=== PATIENT | female | born 1960 | race African-American/Black ===

== ENCOUNTER 2019-02-03 09:57 | Outpatient (CLI) | payer MEDICAID ==
--- NOTE | 2019-02-03 10:36 | XRAY Report ---
Reason: CHRONIC LOW BACK PAIN Procedure Date: 02/03/2019 Accession Number: [id number] / [id number] Procedure: XRN - Lumbar Spine 2 View CPT Code: FULL RESULT: EXAM: LUMBOSACRAL SPINE RADIOGRAPHY EXAM DATE: 02/03/2019 10:13 AM. CLINICAL HISTORY: CHRONIC LOW BACK PAIN. COMPARISONS: None. TECHNIQUE: 3 views. FINDINGS: Alignment: There is normal lumbar lordosis. Bones: Five ttd-akl-gvggtko lumbar vertebral bodies are present. No fractures or bone lesions. Disks: Mild disk height narrowing at L4-L5 with grade 1 L5 retrolisthesis. Moderate disk height narrowing at L5-S1 without evidence of subluxation. Facets: Bilateral L4-L5 and L5-S1 facet arthropathy. Sacroiliac Joints: Unremarkable. Soft Tissues: Large amount of generalized retained stool. IMPRESSION: 1. No acute bony abnormality. 2. Mild disk height narrowing at L4-L5 with grade 1 L5 retrolisthesis. 3. Moderate disk height narrowing at L5-S1 without subluxation. 4. Bilateral multilevel facet arthropathy as described above. 5. Large amount of generalized retained stool. Clinical correlation is recommended. RADIA
== END 2019-02-03 09:58 | disposition home or self-care (01) ==
LOC: DI.N 09:57
PROVIDERS: ATTEND Anesthesiology Pain Medicine
DX: M48.061 Spinal stenosis, lumbar region without neurogenic claudication (principal)
CPT/HCPCS: 72100

== ENCOUNTER 2019-02-15 16:56 | Emergency (ER) | payer MEDICAID, MEDICARE ==
--- NOTE | 2019-02-15 17:27 | ED Physician Documentation ---
PD HPI FOCAL NEURO - Stated complaint Stated Complaint: LT SIDE FACE WEAK - Chief complaint Chief Complaint: Neuro - History obtained from History obtained from: Patient - History of Present Illness Timing - onset: Yesterday (58-year-old woman with history of fibromyalgia, chronic shoulder pain, and myasthenia gravis treated with Mestinon and low-dose prednisone. Since yesterday she feels like her left cheek is drooping. She notices it most where her cheeks on the inside touch her teeth. She denies any numbness. No weakness or numbness in the arms or legs but she does note a week's worth of bilateral hip pain.) Review of Systems Constitutional: denies: Fever, Chills Throat: denies: Dental pain / toothache, Sore throat Cardiac: denies: Chest pain / pressure, Palpitations Respiratory: denies: Dyspnea, Cough PD PAST MEDICAL HISTORY - Present Medications Home Medications: Ambulatory Orders Medication Instructions Recorded Confirmed Hydrocodone/Acetaminophen 1 - 2 each PO Q6H PRN #10 tablet 02/15/19 [Hydrocodon-Acetaminophen 5-325] - Allergies Allergies/Adverse Reactions: Allergies Allergy/AdvReac Type Severity Reaction Status Date / Time iodine Allergy Unknown Verified 02/15/19 17:15 peanut Allergy Unknown Verified 02/15/19 17:15 salmon oil Allergy Unknown Verified 02/15/19 17:15 shellfish derived Allergy Unknown Verified 02/15/19 17:15 Sulfa (Sulfonamide Allergy Unknown Verified 02/15/19 17:15 Antibiotics) tree nut Allergy Unknown Verified 02/15/19 17:15 PD ED PE NORMAL - Vitals Vital signs reviewed: Yes - General General: Alert and oriented X 3, No acute distress, Well developed/nourished - HEENT HEENT: PERRL, EOMI - Neck Neck: Supple, no meningeal sign, No bony TTP - Cardiac Cardiac: RRR, No murmur - Respiratory Respiratory: No respiratory distress, Clear bilaterally - Abdomen Abdomen: Non tender - Extremities Extremities: Other (Her hips are nontender with full range of motion, she can walk normally and bears weight on either leg individually.) - Neuro Neuro: Alert and oriented X 3, No motor deficit, No sensory deficit, Normal speech NIHSS - Time Time: 17:18 - Level of Consciousness Level of consciousness: (0) Alert, Keenly responsive LOC Questions: (0) Answers both Q's correct LOC Commands: (0) Performs both correctly - Gaze Best Gaze: (0) Normal - Visual Visual: (0) No loss - Facial Palsy Facial Palsy: (0) Normal, symmetrical movement - Motor Arms (both separate) Motor Arm (right): (0) No drift Motor Arm (left): (0) No drift - Motor Legs (both separate) Motor Leg (right): (0) No drift Motor Leg (left): (0) No drift - Limb Ataxia Limb Ataxia: (0) Absent - Sensory Sensory: (0) Normal - Best Language Best Language: (0) No aphasia - Dysarthria Dysarthria: (0) Normal - Extinction and Inattention (formally neg Extinction and inattention: (0) No abnormality - Total Score/Results Total Score/Result: 0 Results - Vitals Vitals: Vital Signs - 24 hr 02/15/19 02/15/19 02/15/19 17:06 17:30 17:53 Temperature 37 C Heart Rate 92 75 74 Respiratory 16 16 16 Rate Blood Pressure 163/102 H 150/94 H 115/67 O2 Saturation 100 98 99 02/15/19 18:04 Temperature Heart Rate 69 Respiratory 16 Rate Blood Pressure 134/78 H O2 Saturation 99 Oxygen O2 Source Room air - Labs Labs: Laboratory Tests 02/15/19 02/15/19 02/15/19 17:50 17:50 17:50 WBC 5.2 RBC 4.69 Hgb 12.5 Hct 39.4 MCV 84.0 MCH 26.7 L MCHC 31.7 L RDW 14.6 Plt Count 243 MPV 9.6 Neut # (Auto) 4.0 Lymph # (Auto) 0.8 L [place] # (Auto) 0.3 Eos # (Auto) 0.1 Baso # (Auto) 0.0 Absolute Nucleated RBC 0.00 Nucleated RBC % 0.0 PT 12.4 INR 1.1 Sodium 144 Potassium 4.1 Chloride 107 Carbon Dioxide 30 Anion Gap 7.0 BUN 11 Creatinine 0.8 Estimated GFR (MDRD) 90 Glucose 102 H Calcium 9.1 Total Bilirubin 0.5 AST 19 ALT 20 Alkaline Phosphatase 50 Total Protein 7.1 Albumin 3.7 Globulin 3.4 Albumin/Globulin Ratio 1.1 Lipase 28 - Rads (name of study) CT Head Radiology: EMP read contemporaneously (normal) PD MEDICAL DECISION MAKING - ED course ED course: 58-year-old woman with fibromyalgia and myasthenia gravis presents with complaints of a potential left facial droop which is not seen by me or the nurse on exam. Work-up here was negative. On reexamination at 6:45 PM I still do not see a facial droop at all. Watchful waiting was advised. She did need something for her hip pain. Of note the exam is normal there. Departure - Departure Disposition: 01 Home, Self Care Clinical Impression: Facial asymmetry Hip pain Qualifiers: Laterality: bilateral Qualified Code(s): M25.551 - Pain in right hip; M25.552 - Pain in left hip Condition: Good Record reviewed to determine appropriate education?: Yes Prescriptions: Hydrocodone/Acetaminophen [Hydrocodon-Acetaminophen 5-325] 1 - 2 each PO Q6H PRN #10 tablet PRN Reason: pain Comments: If you worsen in any way please return tomorrow for reevaluation, follow-up with your neurologist, next available appointment.
[2019-02-15] MEDS ORDERED: INDOMETHACIN 25 MG CAPSULE PO STA (17:38)
[2019-02-15 17:59] LABS: BASOPHILS % (AUTO) 0.4 %; EOSINOPHILS # (AUTO) 0.1 10^3/uL (0.0-0.7); EOSINOPHILS % (AUTO) 1.5 %; HGB - HEMOGLOBIN 12.5 g/dL (12.0-16.0); LYMPHOCYTES # (AUTO) 0.8 10^3/uL (1.5-3.5); LYMPHOCYTES % (AUTO) 15.3 %; MEAN CORPUSCULAR HEMOGLOBIN 26.7 pg (27.0-31.0); MEAN CORPUSCULAR HGB CONC 31.7 g/dL (32.0-36.0); MEAN PLATELET VOLUME 9.6 fL (7.9-10.8); MONOCYTES # (AUTO) 0.3 10^3/uL (0.0-1.0); NEUTROPHILS % (AUTO) 77.4 %; PLT - PLATELET COUNT 243 10^3/uL (130-450); RED BLOOD COUNT 4.69 10^6/uL (4.20-5.40); RED CELL DISTRIBUTION WIDTH 14.6 % (12.0-15.0); WHITE BLOOD COUNT 5.2 x10^3/uL (4.8-10.8)
[2019-02-15 18:04] LABS: INR 1.1 (0.8-1.2); PT - PROTHROMBIN TIME 12.4 secs (9.9-12.6)
[2019-02-15 18:11] LABS: ALBUMIN 3.7 g/dL (3.2-5.5); ALBUMIN/GLOBULIN RATIO 1.1 (1.0-2.2); BILIRUBIN,TOTAL 0.5 mg/dL (0.2-1.0); CALCIUM 9.1 mg/dL (8.5-10.3); CREATININE 0.8 mg/dL (0.4-1.0); TOTAL PROTEIN 7.1 g/dL (6.7-8.2)
--- NOTE | 2019-02-15 18:31 | CT Report ---
Reason: L facial weakness Procedure Date: 02/15/2019 Accession Number: [id number] / [id number] Procedure: CT - HEAD WO CPT Code: FULL RESULT: EXAM: CT HEAD EXAM DATE: 02/15/2019 05:43 PM. CLINICAL HISTORY: Left facial weakness. COMPARISON: None. TECHNIQUE: Multiaxial CT images were obtained from the foramen magnum to the vertex. Reformats: Sagittal and coronal. IV contrast: None. In accordance with CT protocol optimization, one or more of the following dose reduction techniques were utilized for this exam: automated exposure control, adjustment of mA and/or KV based on patient size, or use of iterative reconstructive technique. FINDINGS: PARENCHYMA: No acute hemorrhage, transcortical infarction or mass. Normal bearden-white differentiation. EXTRA-AXIAL SPACES: No extra-axial fluid collections. No midline shift. VENTRICLES/SULCI: Normal for patient age. VASCULAR STRUCTURES: The visible vascular structures are unremarkable. SINUSES: The visible paranasal sinuses and mastoid air cells are unremarkable. ORBITS: Unremarkable. BONES: No displaced acute calvarial fracture. OTHER: None. IMPRESSION: No acute intracranial findings. RADIA
[2019-02-15] MEDS ORDERED: HYDROcod/ACET 5/325 Prepack 4 PO STA (18:45)
[2019-02-15 18:50] VITALS: BP 150/94
[2019-02-15] MEDS ORDERED: HYDROcod/ACETAM 5/325 MG TABLET PO STA (18:53)
== END 2019-02-15 18:57 | disposition home or self-care (01) ==
LOC: ED 16:56
DX: Q67.0 Congenital facial asymmetry (principal); M25.551 Pain in right hip; M25.552 Pain in left hip; G70.00 Myasthenia gravis without (acute) exacerbation; Z79.52 Long term (current) use of systemic steroids; M79.7 Fibromyalgia
CPT/HCPCS: 36415; 70450; 80053; 83690; 85025; 85610; 99283; 99284; A9270

== ENCOUNTER 2019-04-06 15:43 | Outpatient (CLI) | payer MEDICARE ==
--- NOTE | 2019-04-07 11:14 | Ultrasound Report ---
Reason: POSTMENOPAUSAL BLEEDING Procedure Date: 04/06/2019 Accession Number: [id number] / [id number] Procedure: US - Pelvic w/Transvaginal CPT Code: Final Report FULL RESULT: EXAM: PELVIC ULTRASOUND EXAM DATE: 04/06/2019 05:50 PM. CLINICAL HISTORY: POSTMENOPAUSAL BLEEDING. COMPARISON: None. TECHNIQUE: Realtime transabdominal pelvic scan performed to identify the uterus and adnexa and as an overview of other pelvic structures, followed by transvaginal scan to provide greater detail of the uterus and adnexa, with static image documentation. FINDINGS: Uterus: 7.7 x 3.4 x 4.6 cm, volume 63 cc. Neutral position. Normal overall size and echotexture. Masses: None. Endometrium: 4 mm. Normal. Cervix: Unremarkable. Right Ovary: 2 x 1.1 x 2.3 cm, volume 2.7 cc. Normal echotexture Left Ovary: 2.4 x 0.8 x 2.5 cm, volume 2.4 cc. Normal echotexture Free Fluid: None. Other: None. IMPRESSION: Normal endometrial thickness RADIA
== END 2019-04-06 15:44 | disposition home or self-care (01) ==
LOC: DI 15:43
PROVIDERS: ATTEND Obstetrics & Gynecology
DX: N95.0 Postmenopausal bleeding (principal)
CPT/HCPCS: 76830; 76856

== ENCOUNTER 2019-04-27 10:16 | Outpatient (CLI) | payer MEDICARE | END 2019-04-27 10:17 | disposition EMS.NT | LOC: EMS 10:16 | PROVIDERS: ATTEND Surgery | DX: F41.0 Panic disorder [episodic paroxysmal anxiety] (principal); R06.00 Dyspnea, unspecified ==

== ENCOUNTER 2020-12-16 17:21 | Emergency (ER) | payer MEDICARE ==
[2020-12-16] MEDS ORDERED: ACETAMINOPHEN 325 MG TABLET PO STA (17:25)
--- NOTE | 2020-12-16 17:26 | ED Physician Documentation ---
History of Present Illness - Stated complaint Stated Complaint: MANRIQUE,BODY ACHES - History obtained from History obtained from: Patient - Additonal information Additional information: 60-year-old woman with myasthenia gravis became symptomatic yesterday with headache, body aches, fever. She has been exposed to Covid by a family member. She has not been immunized against Covid. Review of Systems Constitutional: reports: Chills, Myalgias, Fatigue Nose: denies: Rhinorrhea / runny nose Throat: denies: Sore throat Respiratory: denies: Dyspnea PD PAST MEDICAL HISTORY - Present Medications Home Medications: Ambulatory Orders Medication Instructions Recorded Confirmed Hydrocodone/Acetaminophen 1 - 2 each PO Q6H PRN #10 tablet 02/15/19 [Hydrocodon-Acetaminophen 5-325] - Allergies Allergies/Adverse Reactions: Allergies Allergy/AdvReac Type Severity Reaction Status Date / Time iodine Allergy Unknown Verified 02/15/19 17:15 peanut Allergy Unknown Verified 02/15/19 17:15 salmon oil Allergy Unknown Verified 02/15/19 17:15 shellfish derived Allergy Unknown Verified 02/15/19 17:15 Sulfa (Sulfonamide Allergy Unknown Verified 02/15/19 17:15 Antibiotics) tree nut Allergy Unknown Verified 02/15/19 17:15 PD ED PE NORMAL - Vitals Vital signs reviewed: Yes - General General: Alert and oriented X 3, No acute distress - Derm Derm: Normal color, Warm and dry - Neuro Neuro: Alert and oriented X 3, Normal speech Results - Vitals Vitals: Oxygen O2 Source Room air PD MEDICAL DECISION MAKING - ED course ED course: Presents with family member simply asking for Covid test and this is done. Departure - Departure Disposition: 01 Home, Self Care Clinical Impression: Viral syndrome Condition: Good Record reviewed to determine appropriate education?: Yes Instructions: ED Viral Syndrome Comments: You have a Covid test pending. You need to self quarantine until the result is done and negative. Do not leave your house. Do not get near anybody. The results should be done in 48 to 72 hours. We will call with a positive result, the fastest way to get a negative result for confirmation though is to go to the hospital website at [email or web address], click on the my [facility] tab and sign up for the patient portal. If any friends or family get sick and would like to have a Covid test done, but do not have signs or symptoms that would necessitate being hospitalized, we encourage testing through our coronavirus swabbing station, call [phone] to schedule an appointment.
[2020-12-16 18:02] VITALS: BP 119/78
== END 2020-12-16 18:04 | disposition home or self-care (01) ==
LOC: ED 17:21
DX: B34.9 Viral infection, unspecified (principal); Z20.822 Contact with and (suspected) exposure to COVID-19
CPT/HCPCS: 99282; 99283; A9270; U0004

== ENCOUNTER 2024-01-17 21:15 | Outpatient (CLI) | payer MEDICARE | END 2024-01-17 21:16 | disposition critical access hospital (66) | LOC: EMS 21:15 | DX: R10.32 Left lower quadrant pain (principal); M54.50 Low back pain, unspecified | CPT/HCPCS: A0425; A0427 ==

== ENCOUNTER 2024-01-17 21:32 | Emergency (ER) | payer MEDICARE ==
--- NOTE | 2024-01-17 21:56 | ED Physician Documentation ---
History of Present Illness - Stated complaint Stated Complaint: ABD PAIN - Chief complaint Chief Complaint: Abd Pain - History obtained from History obtained from: Patient - Additonal information Additional information: 63-year-old woman with past medical history of fibromyalgia, myasthenia gravis, high blood pressure, presents with about a month of intermittent constipation and diarrhea and nausea as well as left lower quadrant radiating to the flank for the past 2 days, worsening acutely tonight. She states that she had nonbloody nonbilious nausea and vomiting and some nonbloody diarrhea yesterday. She had a soft brown bowel movement this morning. Denies fever, dizziness. She did receive 4 mg of IV morphine with EMS en route with improvement in pain. She does state that the pain is coming back. PD PAST MEDICAL HISTORY - Past Medical History Cardiovascular: Hypertension Musculoskeletal: Fibromyalgia Other Past Medical History: Myasthenia gravis - Allergies Allergies/Adverse Reactions: Allergies Allergy/AdvReac Type Severity Reaction Status Date / Time amoxicillin Allergy Rash Verified 01/17/24 21:39 iodine Allergy Unknown Verified 02/15/19 17:15 peanut Allergy Unknown Verified 02/15/19 17:15 salmon oil Allergy Unknown Verified 02/15/19 17:15 shellfish derived Allergy Unknown Verified 02/15/19 17:15 Sulfa (Sulfonamide Allergy Unknown Verified 02/15/19 17:15 Antibiotics) tree nut Allergy Unknown Verified 02/15/19 17:15 - Social History Does the pt smoke?: Yes Smoking Status: Current every day smoker Does the pt drink ETOH?: Yes - Immunizations Immunizations are current?: Yes PD ED PE NORMAL - Vitals Vital signs reviewed: Yes - General General: Alert and oriented X 3, No acute distress, Well developed/nourished - HEENT HEENT: Atraumatic, PERRL, EOMI - Neck Neck: Supple, no meningeal sign - Cardiac Cardiac: RRR - Respiratory Respiratory: No respiratory distress, Clear bilaterally - Abdomen Abdomen: Non tender, Non distended, Other (Discomfort to palpation in the left lower quadrant) - Derm Derm: Normal color, Warm and dry Results - Vitals Vitals: Vital Signs - 24 hr 01/17/24 21:39 Temperature 37.2 C Heart Rate 87 Respiratory 16 Rate Blood Pressure 127/96 H O2 Saturation 97 Oxygen O2 Source Room air - EKG (time done) 2143 EKG releavant findings:: EKG personally interpreted by author of this note. Relevant findings are: Rate: Rate (enter#) (61) Rhythm: NSR Mentor: Normal Intervals: Normal PA QRS: Normal Ischemia: Normal ST segments Other comments: Other comments (PVC) - Labs Labs: Laboratory Tests 01/17/24 01/17/24 21:38 21:38 WBC 8.3 RBC 4.59 Hgb 12.1 Hct 38.0 MCV 82.8 MCH 26.4 L MCHC 31.8 L RDW 16.2 H Plt Count 260 MPV 9.8 Neut # (Auto) 6.5 Lymph # (Auto) 1.1 L [place] # (Auto) 0.5 Eos # (Auto) 0.2 Baso # (Auto) 0.0 Absolute Nucleated RBC 0.00 Nucleated RBC % 0.0 Sodium 142 Potassium 3.6 Chloride 106 Carbon Dioxide 31 Anion Gap 5.0 L BUN 12 Creatinine 1.0 Estimated GFR (MDRD) 68 L Glucose 150 H Calcium 9.0 Total Bilirubin 0.3 AST 14 ALT 13 Alkaline Phosphatase 35 L Total Protein 6.1 L Albumin 3.8 Globulin 2.3 Albumin/Globulin Ratio 1.7 Lipase 29 PD Medical Decision Making - ED course ED course: 63-year-old woman presents with abdominal pain worsening over the past 2 days as well as some chronic sounding symptoms of gastrointestinal nature over the past couple months. She does state that she is being worked up for IBS. Plan to obtain lab work, CT abdomen pelvis with IV contrast and provide IV fluids and pain medication. note that patient declined iv contrast since she had a prior bad experience in 2006 and "screamed and writhed on the table" when she got contrast. therefore ct noncontrast was ordered per her request. Patient responded well to pain medication with improvement in pain. Plan to discharge and follow-up outpatient with primary care provider and gastroenterology. Return precautions given. Departure - Departure Clinical Impression: Abdominal pain Condition: Stable Instructions: Abdominal Pain Comments: You were seen in the emergency department for medical evaluation. Please follow-up with your primary care provider and return to the emergency department if you have any new or worsening symptoms or other concerns. Forms: PCP List
[2024-01-17] MEDS: HYDROmorphone 1 MG/ML CARPUJECT IVP STA ×2 (21:58→23:34)
[2024-01-17] MEDS: SODIUM CHLORIDE 0.9% 1,000 ML IV STA (21:59)
[2024-01-17 22:00] LABS: BASOPHILS % (AUTO) 0.4 %; EOSINOPHILS # (AUTO) 0.2 10^3/uL (0.0-0.7); EOSINOPHILS % (AUTO) 1.8 %; HGB - HEMOGLOBIN 12.1 g/dL (12.0-16.0); LYMPHOCYTES # (AUTO) 1.1 10^3/uL (1.5-3.5); LYMPHOCYTES % (AUTO) 12.7 %; MEAN CORPUSCULAR HEMOGLOBIN 26.4 pg (27.0-31.0); MEAN CORPUSCULAR HGB CONC 31.8 g/dL (32.0-36.0); MEAN CORPUSCULAR VOLUME 82.8 fL (81.0-99.0); MEAN PLATELET VOLUME 9.8 fL (7.9-10.8); MONOCYTES # (AUTO) 0.5 10^3/uL (0.0-1.0); MONOCYTES % (AUTO) 5.9 %; NEUTROPHILS # (AUTO) 6.5 10^3/uL (1.5-6.6); NEUTROPHILS % (AUTO) 78.8 %; PLT - PLATELET COUNT 260 10^3/uL (130-450); RED BLOOD COUNT 4.59 10^6/uL (4.20-5.40); RED CELL DISTRIBUTION WIDTH 16.2 % (12.0-15.0); WHITE BLOOD COUNT 8.3 x10^3/uL (4.8-10.8)
[2024-01-17 22:13] LABS: ALBUMIN 3.8 g/dL (3.2-5.5); ALBUMIN/GLOBULIN RATIO 1.7 (1.0-2.2); BILIRUBIN,TOTAL 0.3 mg/dL (0.2-1.0); POTASSIUM 3.6 mmol/L (3.5-4.5); TOTAL PROTEIN 6.1 g/dL (6.4-8.9)
[2024-01-17 22:19] LABS: BILIRUBIN,URINE NEGATIVE (NEGATIVE); GLUCOSE, URINE (UA) NEGATIVE (NEGATIVE); KETONES,URINE (UA) NEGATIVE (NEGATIVE); LEUKOCYTE ESTERASE, URINE NEGATIVE (NEGATIVE); NITRITE,URINE NEGATIVE (NEGATIVE); OCCULT BLOOD,URINE NEGATIVE (NEGATIVE); PROTEIN,URINE NEGATIVE (NEGATIVE); UROBILINOGEN,URINE 0.2 (NORMAL) E.U./dL (NORMAL)
[2024-01-17 22:36] LABS: CLARITY,URINE CLEAR (CLEAR)
--- NOTE | 2024-01-17 23:46 | CT Report ---
PROCEDURE: Abdomen/Pelvis WO INDICATIONS: llq pain TECHNIQUE: A CT scan of the abdomen and pelvis was performed without the use of intravenous contrast. Images we re recorded and evaluated at appropriate window settings. Reformats: coronal and sagittal. For radiat ion dose reduction, the following was used: automated exposure control, adjustment of mA and/or kV ac cording to patient size. COMPARISON: None. FINDINGS: Image quality: Diagnostic. Evaluation of the solid organs is limited without IV contrast. Lower chest: Unremarkable. Liver: No contour-deforming mass. Gallbladder: No radiopaque stones or wall thickening. Biliary tree: No intrahepatic or extrahepatic dilation, accounting for age. Spleen: No splenomegaly. Pancreas: No pancreatic ductal dilation. Adrenals: Thickening of the left adrenal gland. Kidneys and ureters: No hydronephrosis. No contour-deforming mass. Stomach, bowel and peritoneum: Diverticulosis. No diverticulitis demonstrated. No small bowel obstruc tion. The appendix is absent. The stomach is within normal limits. No free fluid. No pneumoperitoneum . Lymph nodes: No central or retroperitoneal adenopathy. Vessels: No infrarenal aortic aneurysm. Reproductive organs: Vertically oriented uterus.. Bladder: Bladder wall thickness is normal, accounting for underdistention. No calcified bladder stone s. Pelvic lymph nodes: No adenopathy by size criteria. Bones: No aggressive osseous abnormality. Other: No significant ventral or inguinal hernia. IMPRESSION: 1. Diverticulosis. No diverticulitis identified. No free fluid. 2. No kidney stones. No hydronephrosis. Reviewed by: Reid Soni MD on 01/17/2024 11:44 PM PDT Approved by: Reid Soni MD on 01/17/2024 11:44 PM PDT Station ID: [id number]
[2024-01-18 00:20] VITALS: BP 116/72; O2SAT 91
== END 2024-01-18 01:30 | disposition home or self-care (01) ==
LOC: EDUNIT# → ED 21:32
DX: R10.32 Left lower quadrant pain (principal)
CPT/HCPCS: 36415; 74176; 80053; 81003; 83690; 85025; 96374; 96376; 99283; 99284; J1170; 81001; 87086

== ENCOUNTER 2024-01-26 14:47 | Outpatient (CLI) | payer MEDICARE | END 2024-01-26 23:59 | disposition critical access hospital (66) | LOC: EMS 14:47 | DX: M54.50 Low back pain, unspecified (principal); M25.552 Pain in left hip; R10.32 Left lower quadrant pain | CPT/HCPCS: A0425; A0427 ==

== ENCOUNTER 2024-01-26 15:08 | Emergency (ER) | payer MEDICARE ==
[2024-01-26 15:22] VITALS: BP 147/104
--- NOTE | 2024-01-26 15:23 | ED Physician Documentation ---
PD HPI BACK PAIN - Stated complaint Stated Complaint: L BACK PX - Chief complaint Chief Complaint: Back Pain - History obtained from History obtained from: Patient, EMS - Additional information Additional information: 63-year-old woman with myasthenia gravis, chronic back pain, and usually in pain management is visiting from [place]. She is frustrated because earlier this month before she came up to visit family she was hospitalized in [place] twice for myasthenic crises. First on IVIG and later on plasmapheresis. Over the last week her back is started to flare and she does not have her usual tramadol because she missed her pain management appointment when she was hospitalized. Now pain is severe in the left low back and radiating to the left thigh. There is no weakness, numbness, tingling, saddle anesthesia or fevers. PD PAST MEDICAL HISTORY - Past Medical History Past Medical History: Yes Cardiovascular: Hypertension Neuro: Other Musculoskeletal: Fibromyalgia Other Past Medical History: myasthenia gravis - Present Medications Home Medications: Ambulatory Orders Medication Instructions Recorded Confirmed Amlodipine Besylate 2.5 mg PO DAILY 01/17/24 01/17/24 Aspirin/Acetaminophen/Caffeine 1 each PO Q6HR 01/17/24 01/17/24 [Headache Rlf [id number] Cplt] Atorvastatin Calcium 40 mg PO QPM 01/17/24 01/17/24 Atovaquone [Mepron] 1,500 mg PO DAILY 01/17/24 01/17/24 Buspirone HCl 30 mg PO BID 01/17/24 01/17/24 Cetirizine [ZyrTEC] 10 mg PO DAILY 01/17/24 01/17/24 Ciclopirox Olamine [Loprox] 1 gm TP DAILY PRN 01/17/24 01/17/24 DULoxetine [Cymbalta] 30 mg PO DAILY 01/17/24 01/17/24 Diclofenac Sodium 1% Gel [Voltaren 1 applic TOP BID PRN 01/17/24 01/17/24 Gel] Diphenoxylate/Atropine [Lomotil] 1 tab PO TID PRN 01/17/24 01/17/24 Duloxetine HCl [Cymbalta] 60 mg PO DAILY 01/17/24 01/17/24 EPINEPHrine [Epinephrine] 0.3 mg IM ONCE PRN 01/17/24 01/17/24 Famotidine 40 mg PO BID 01/17/24 01/17/24 Fesoterodine Fumarate 8 mg PO DAILY 01/17/24 01/17/24 [Fesoterodine Fumarate ER] Gabapentin [Neurontin] 800 mg PO TID 01/17/24 01/17/24 LORazepam [Ativan] 0.5 mg PO DAILY PRN 01/17/24 01/17/24 Lactase [Lactaid] 9,000 unit PO PRN PRN 01/17/24 01/17/24 Lidocaine Ointment 5% [Xylocaine 1 applic TOP DAILY 01/17/24 01/17/24 Ointment 5%] Loperamide [Imodium] 2 mg PO ONCE PRN 01/17/24 01/17/24 Naloxone HCl Nasal [Narcan Nasal] 4 mg NS PRN PRN 01/17/24 01/17/24 Nortriptyline [Pamelor] 10 mg PO HS PRN 01/17/24 01/17/24 Pantoprazole [Protonix] 40 mg PO BID 01/17/24 01/17/24 Pyridostigmine [place] [Mestinon] 180 mg PO HS 01/17/24 01/17/24 Telmisartan 80 mg PO DAILY 01/17/24 01/17/24 Tretinoin [Retin-A] 1 applic TP PRN PRN 01/17/24 01/17/24 Triamcinolone 0.1% Cream [Kenalog 1 applic TOP ONCE 01/17/24 01/17/24 0.1% Cream] buPROPion HCL [Bupropion Xl] 150 mg PO DAILY 01/17/24 01/17/24 carvediloL [Coreg] 6.25 mg PO BID 01/17/24 01/17/24 methocarbamoL [Methocarbamol] 750 mg PO TID PRN 01/17/24 01/17/24 mycophenolate mofetiL [Cellcept] 500 mg PO DAILY 01/17/24 01/17/24 ondansetron HCL [Ondansetron HCl] 8 mg PO Q8HR PRN 01/17/24 01/17/24 predniSONE [Prednisone] 20 mg PO DAILY 01/17/24 01/17/24 pyRIDostigmine bromide 4 tab PO DAILY 01/17/24 01/17/24 [Pyridostigmine [place]] traMADol [Ultram] 50 mg PO BID PRN 01/17/24 01/17/24 Oxycodone HCl/Acetaminophen 1 - 2 each PO Q6H PRN #20 tablet 01/26/24 [Percocet 5-325 mg Tablet] - Allergies Allergies/Adverse Reactions: Allergies Allergy/AdvReac Type Severity Reaction Status Date / Time amoxicillin Allergy Rash Verified 01/26/24 15:20 iodine Allergy Unknown Verified 01/26/24 15:20 peanut Allergy Unknown Verified 01/26/24 15:20 salmon oil Allergy Unknown Verified 01/26/24 15:20 shellfish derived Allergy Unknown Verified 01/26/24 15:20 Sulfa (Sulfonamide Allergy Unknown Verified 01/26/24 15:20 Antibiotics) tree nut Allergy Unknown Verified 01/26/24 15:20 - Social History Does the pt smoke?: Yes Smoking Status: Current every day smoker Does the pt drink ETOH?: Yes - Immunizations Immunizations are current?: Yes PD ED PE NORMAL - Vitals Vital signs reviewed: Yes - General General: Alert and oriented X 3, No acute distress - Abdomen Abdomen: Normal bowel sounds, Soft, Non tender - Extremities Extremities: Other (The patient has equal and normal Achilles and patellar reflexes bilaterally. Normal sensation in all areas of the legs. Patient denies saddle anesthesia. Normal strength in flexion-extension at the ankles, knees, and flexion of the hips.) - Neuro Neuro: Alert and oriented X 3 Results - Vitals Vitals: Vital Signs - 24 hr 01/26/24 15:12 Temperature 36.4 C L Heart Rate 74 Respiratory 18 Rate Blood Pressure 147/104 H O2 Saturation 95 Oxygen O2 Source Room air Oxygen Flow Rate 1 - Labs Labs: Laboratory Tests 01/26/24 01/26/24 15:30 15:30 WBC 11.3 H RBC 4.73 Hgb 12.3 Hct 39.6 MCV 83.7 MCH 26.0 L MCHC 31.1 L RDW 16.5 H Plt Count 385 MPV 9.4 Neut # (Auto) 9.2 H Lymph # (Auto) 1.3 L Gage # (Auto) 0.7 Eos # (Auto) 0.0 Baso # (Auto) 0.1 Absolute Nucleated RBC 0.00 Nucleated RBC % 0.0 Sodium 142 Potassium 4.0 Chloride 106 Carbon Dioxide 34 H Anion Gap 2.0 L BUN 10 Creatinine 0.9 Estimated GFR (MDRD) 77 L Glucose 119 H Calcium 8.8 Total Bilirubin 0.3 AST 14 ALT 13 Alkaline Phosphatase 39 L Total Protein 5.8 L Albumin 3.8 Globulin 2.0 L Albumin/Globulin Ratio 1.9 PD Medical Decision Making - ED course ED course: 63-year-old woman with chronic back pain presents with an apparent exacerbation with the same with some sciatica type symptoms to the left. Neurologic examination is normal and there is no evidence of cauda equina. No fevers. I reviewed the CT from about a week ago when she was here for abdominal pain. There was no "aggressive bony osseous abnormality." She received Toradol and Dilaudid with improved pain and half dose of Dilaudid was repeated. Departure - Departure Disposition: 01 Home, Self Care Clinical Impression: Back pain Condition: Good Record reviewed to determine appropriate education?: Yes Instructions: ED Sciatica Prescriptions: Oxycodone HCl/Acetaminophen [Percocet 5-325 mg Tablet] 1 - 2 each PO Q6H PRN #20 tablet PRN Reason: pain Comments: I sent your prescription electronically to [facility] in [place]. Follow-up with your pain management doctor on return home. Return for new or worsening symptoms. I am prescribing a short course of narcotic pain medication for you. These are potentially dangerous and addictive medications that should be used carefully. These medications may constipate you. Take an [id number]-[id number] stool softener (docusate) twice daily with plenty of water while taking these medications. If you go 24 hours without a bowel movement, take [id number] miralax, per package instructions. Do not drink or drive while taking these medications. If you received narcotic or sedating medications while in the emergency department, do not drive for 24 hours. Store this medication in a safe, secure place and out of reach of children. It is a violation of federal law to give or sell this medication to another person or to use in a manner other than prescribed. The ED will not refill narcotic prescriptions, including prescriptions lost or stolen. To dispose of unwanted medications: 1. [facility] provides a drop box for medication in pill form only (no liquids) 8:00 am to 4:30 p.m. Saturday-Saturday in the lobby of the [facility], [address] Empty pills into ziplock bag before disposal. Call [phone] for information. 2.[employer] is a free service available to all [facility] residents. Go to [email or web address] Note that many narcotic pain relievers also contain Tylenol/acetaminophen. Please ensure that your total dose of acetaminophen from all sources does not exceed 3 g (3000 mg) per day.
[2024-01-26 15:34] LABS: BASOPHILS # (AUTO) 0.1 10^3/uL (0.0-0.1); BASOPHILS % (AUTO) 0.4 %; EOSINOPHILS % (AUTO) 0.3 %; HCT - HEMATOCRIT 39.6 % (37.0-47.0); HGB - HEMOGLOBIN 12.3 g/dL (12.0-16.0); LYMPHOCYTES # (AUTO) 1.3 10^3/uL (1.5-3.5); LYMPHOCYTES % (AUTO) 11.4 %; MEAN CORPUSCULAR HGB CONC 31.1 g/dL (32.0-36.0); MEAN CORPUSCULAR VOLUME 83.7 fL (81.0-99.0); MEAN PLATELET VOLUME 9.4 fL (7.9-10.8); MONOCYTES # (AUTO) 0.7 10^3/uL (0.0-1.0); MONOCYTES % (AUTO) 6.5 %; NEUTROPHILS # (AUTO) 9.2 10^3/uL (1.5-6.6); PLT - PLATELET COUNT 385 10^3/uL (130-450); RED BLOOD COUNT 4.73 10^6/uL (4.20-5.40); RED CELL DISTRIBUTION WIDTH 16.5 % (12.0-15.0); WHITE BLOOD COUNT 11.3 x10^3/uL (4.8-10.8)
[2024-01-26] MEDS: KETOROLAC 15 MG/ML VIAL IVP STA (15:38)
[2024-01-26] MEDS: HYDROmorphone 1 MG/ML CARPUJECT IVP STA (15:39)
[2024-01-26 15:50] LABS: ALBUMIN 3.8 g/dL (3.2-5.5); ALBUMIN/GLOBULIN RATIO 1.9 (1.0-2.2); BILIRUBIN,TOTAL 0.3 mg/dL (0.2-1.0); CALCIUM 8.8 mg/dL (8.5-10.3); CREATININE 0.9 mg/dL (0.6-1.3); TOTAL PROTEIN 5.8 g/dL (6.4-8.9)
[2024-01-26] MEDS: HYDROmorphone 0.5 MG/0.5 ML SYRINGE IVP STA (16:42)
[2024-01-26 17:27] VITALS: O2SAT 94
== END 2024-01-26 17:20 | disposition home or self-care (01) ==
LOC: EDUNIT# → ED 15:08
DX: M54.50 Low back pain, unspecified (principal); I10 Essential (primary) hypertension; F17.200 Nicotine dependence, unspecified, uncomplicated; Z79.899 Other long term (current) drug therapy
CPT/HCPCS: 36415; 80053; 85025; 96374; 96375; 96376; 99283; J1170